=== PATIENT | female | born 1990 ===

== ENCOUNTER 2018-06-10 07:45 | Inpatient (IN) ==
[2018-06-10] MEDS ORDERED: LACTATED RINGER'S 1,000 ML IV PRN (08:21)
[2018-06-10] MEDS ORDERED: OXYTOCIN 30 UNITS/500 ML BAG IV PRN (08:21)
[2018-06-10] MEDS ORDERED: LACTATED RINGER'S 1,000 ML IV SCH (08:30)
[2018-06-10 08:43] LABS: Hematocrit (blood only) 36.9 % (37-47); Mean Corpuscular Volume 91.1 fL (80-100); Mean Platelet Volume 10.6 fL (7.4-10.4); Platelet Count 165 K/uL (130-400); RDW Coefficient of Variation 12.8 % (11.5-14.5); RDW Standard Deviation 42.6 fL (36.4-46.3); Red Blood Count 4.05 M/uL (4.2-5.4)
[2018-06-10 08:53] LABS: Mean Corpuscular Hgb Conc 35.2 g/dL (32-36)
--- NOTE | 2018-06-10 10:03 | History & Physical Report ---
Date of Service June 10, 2018 Assessment & Plan (1) Normal intrauterine in third trimester: 27yo at 40.6 weeks GA. Admit for labor Anticipate vaginal delivery. Uncomplicated course No significant PMH/PSH Labor: Patient declining any labor interventions. Will continue to monitor GBS neg History of Present Illness Chief Complaint: labor Primary Care Provider: NO PCP 27yo at 40.6 weeks GA. Patient presen with contractions. Denies VB, LOF. Good Fm PNI: None Labs: A+, GBS neg Allergies Allergy/AdvReac Type Severity Reaction Status Date / Time No Known Allergies Allergy Unverified 06/10/18 08:04 Home Medications Home Medications Medication Instructions Recorded Confirmed Type PNV [id number] fumarate-FA 06/10/18 History [] docusate sodium [Colace] 200 mg PO DAILY 06/10/18 06/10/18 History polyethylene glycol 3350 [Miralax] 17 g PO DAILY 06/10/18 06/10/18 History Patient History Medical History Anxiety Family History Other H/O wisdom tooth extraction S/P ACL surgery Social History marital status: Current Living Situation: Spouse Other Information That Helps Us Care for You: No Feels Safe at Home: Yes Safety Concerns: Feels Safe At This Time Smoking Status: Never smoker Hx Alcohol Use: No Hx Substance Use: No Beliefs That Will Affect Care: None Preferred Language: Bengali Communication Ability: Effective Substation Wireman Required: No Physical Exam 2 Vital Signs (Past 24 Hours): Last Vital Signs Temp 36.4 C L 06/10/18 08:00 Pulse 70 06/10/18 07:58 Resp 20 06/10/18 09:00 BP 127/75 06/10/18 07:58 Genitourinary: Manual OB Exam: + cervical dilation 4 cm, + cervical effacement 90% and + station -1 OB Exam Monitor Tracing: + external FHT monitor used and + category I
--- NOTE | 2018-06-10 15:25 | Obstetrical Progress Note ---
Date of Service June 10, 2018 Assessment & Plan (1) Normal intrauterine in third trimester: 27yo at 40.6 weeks GA. Admit for early labor Anticipate vaginal delivery. Uncomplicated course No significant PMH/PSH Labor: Progressing slowly. Patient declining any labor interventions. Will continue to monitor GBS neg Subjective Patient doing well. Declining labor intervention. Physical Exam 2 Vital Signs (Past 24 Hours): Last Vital Signs Temp 36.5 C 06/10/18 12:00 Pulse 67 06/10/18 15:04 Resp 20 06/10/18 13:30 BP 108/63 06/10/18 15:04 Genitourinary: Manual OB Exam: + cervical dilation (5.5), + cervical effacement 90% and + station 0 OB Exam Monitor Tracing: + category I
[2018-06-11] MEDS ORDERED: ACETAMINOPHEN 325 MG TAB PO PRN (05:04)
[2018-06-11] MEDS ORDERED: BISACODYL 10 MG SUPP PR PRN (05:04)
[2018-06-11] MEDS ORDERED: HYDROCORTISONE ACETATE 25 MG SUPP PR PRN (05:04)
[2018-06-11] MEDS ORDERED: DIPHTHERIA/TETANUS/PERTUSSIS 0.5 ML SYR/VIAL IM ONE (05:04)
[2018-06-11] MEDS ORDERED: OXYTOCIN 30 UNITS/500 ML BAG IV PRN (05:04)
[2018-06-11] MEDS ORDERED: BENZOCAINE 20% AER SPR 82.5 GM CAN EXT PRN (05:04)
[2018-06-11] MEDS ORDERED: SUPERCREAM 0.870% 15 GM JAR EXT PRN (05:04)
[2018-06-11] MEDS: IBUPROFEN 600 MG TAB PO PRN ×4 (05:49→20:21)
--- NOTE | 2018-06-11 08:01 | Delivery Summary ---
DATE OF OPERATION: 06/11/2018 PROCEDURE: Normal spontaneous vaginal delivery with a second-degree perineal laceration and bilateral cervical laceration repair. SURGEON: Nguyễn Ocampo MD PREOPERATIVE DIAGNOSES: 1. Single intrauterine at 40 weeks 6 days gestational age. 2. Labor. POSTOPERATIVE DIAGNOSES: 1. Single intrauterine at 40 weeks 6 days gestational age. 2. Labor. 3. Delivered. ESTIMATED BLOOD LOSS: 300 mL. DRAINS: None. FLUIDS: Continuous lactated ringer. URINE OUTPUT: Not measured. COMPLICATIONS: None. FINDINGS: Viable female with Apgars of 8 and 9 at 1 and 5 minutes respectively and weight pending. INDICATIONS: Ms. Martinez is a 27-year-old G1, P0 at 40 weeks 6 days gestational age. The patient presented with regular contractions and was found to be 4 cm dilated. The patient progressed slowly in labor without any additional augmentation until she was approximately 8 cm dilated, at which time she underwent artificial rupture of membranes for clear fluid. The patient continued to progress in labor and progressed to 10 cm dilated, 100% effaced, positive 2 station at which time she felt the desire to push. DESCRIPTION OF PROCEDURE: The patient progressed to 10 cm dilated, 100% effaced positive 2 station, pushed over intact perineum without anesthesia and delivered a viable female infant, weight and Apgars as noted above. The head of the delivered in LESLIE position and rest into right transverse. Nuchal cord x1 was noted which was easily reduced. Body and shoulders quickly followed. The was noted to be vigorous soon after delivery and was delivered to the maternal abdomen where suctioned bulb and stimulated. A 2-minute delayed cord clamping was initiated. The cord was double clamped and cut. The was noted to be still continued to be vigorous. Attention was then turned to delivery of the placenta which was delivered intact, 3-vessel cord with gentle cord traction. Inspection of the perineum, vagina, and cervix showed a second-degree perineal laceration, bilateral sulcal lacerations and a right labial laceration. These were repaired in traditional fashion with Vicryl suture. Needle, sponge and instrument counts were correct at the completion of the case. I attest to the content of the Intraoperative Record and any orders documented therein. Any exception s are noted below.
[2018-06-11] MEDS: PRENATAL VITAMIN 1 TAB PO SCH (09:18)
[2018-06-11] MEDS: DOCUSATE SODIUM 100 MG CAP PO SCH ×2 (09:18→20:21)
[2018-06-12] MEDS: IBUPROFEN 600 MG TAB PO PRN ×5 (00:28→19:27)
[2018-06-12 06:53] LABS: Hematocrit (blood only) 28.5 % (37-47); Hemoglobin 9.6 g/dL (12.0-16.0); Mean Corpuscular Hgb Conc 33.7 g/dL (32-36); Mean Corpuscular Volume 94.1 fL (80-100); Platelet Count 144 K/uL (130-400); RDW Coefficient of Variation 13.3 % (11.5-14.5); RDW Standard Deviation 45.4 fL (36.4-46.3); Red Blood Count 3.03 M/uL (4.2-5.4); White Blood Count 8.08 K/uL (4.8-10.8)
[2018-06-12] MEDS: DOCUSATE SODIUM 100 MG CAP PO SCH ×2 (09:19→20:10)
[2018-06-12] MEDS: PRENATAL VITAMIN 1 TAB PO SCH (09:19)
--- NOTE | 2018-06-12 10:04 | Obstetrical Progress Note ---
Date of Service <Komal Ruiz MD - Last Filed: 06/12/18 10:04> June 12, 2018 Assessment & Plan <Komal Ruiz MD - Last Filed: 06/12/18 10:04> (1) Normal intrauterine in third trimester: 27yo w/ at 40.6 weeks with second degree perineal tear and bilateral cervical laceration repair. A+, GBS- PPD #1 Routine care -Ambulation, diet+hydration, pain control Day #:: 1 Subjective <Komal Ruiz MD - Last Filed: 06/12/18 10:04> Ambulation: ambulating normally Voiding: no voiding problems Passing Gas:: Yes Diet Tolerance:: regular diet Lochia:: Moderate Feeding Type:: breast feeding Current Pain Level(1-10): 3 Constitutional: no fever and no chills Respiratory: no dyspnea Cardiovascular: no chest pain and no palpitations Gastrointestinal: no nausea and no vomiting Genitourinary (female): no dysuria Physical Exam <Komal Ruiz MD - Last Filed: 06/12/18 10:04> Vital Signs (Past 24 Hours) Last Vital Signs Temp 36.5 C 06/12/18 08:11 Pulse 72 06/12/18 08:11 Resp 18 06/12/18 08:11 BP 112/72 06/12/18 08:11 Pulse Ox 99 06/12/18 08:11 Constitutional WD/WN, vitals as above Respiratory normal respiratory effort, lungs clear to auscultation Cardiovascular RRR, no murmur, no edema Genitourinary OB Exam Abdomen: + fundal height Fundus: + firm and + relation to umbilicus (at umbilicus) Results & Data <Komal Ruiz MD - Last Filed: 06/12/18 10:04> Laboratory Results Laboratory Results - last 24 hr 06/12/18 06:38 WBC 8.08 RBC 3.03 L Hgb 9.6 L D Hct 28.5 L MCV 94.1 MCH 31.7 MCHC 33.7 RDW Std Deviation 45.4 RDW Coeff of Aggie 13.3 Plt Count 144 MPV 10.0 Medications Administered Home Medications PNV cmb#95-ferrous fumarate-FA [] 02/09/19 [History] docusate sodium [Colace] 200 mg PO DAILY 06/10/18 [History Confirmed 06/10/18] polyethylene glycol 3350 [Miralax] 17 g PO DAILY 06/10/18 [History Confirmed 01/18] Active Medications Acetaminophen (Tylenol) 650 mg PO Q6H PRN PRN Reason: Pain/DEJESUS/Fever Stop: 07/11/18 05:03 Benzocaine (Dermoplast Pain Relieving Selz) 1 appln EXT PRN PRN PRN Reason: Perineal Discomfort Stop: 07/11/18 05:03 Bisacodyl (Dulcolax) 5 mg PO 2000 [facility] Stop: 06/12/18 20:01 Bisacodyl (Dulcolax) 10 mg NC DAILY PRN PRN Reason: No BM on 2nd post- day Stop: 07/11/18 05:03 Cocaine HCl (Supercream 0.870%) 1 gm EXT BID PRN PRN Reason: Hemorrhoidal Inflammation Stop: 06/25/18 05:03 Docusate Sodium (Colace) 100 mg PO BID [facility] Stop: 07/11/18 08:59 Last Admin: 06/12/18 09:19 Dose: 100 mg Hydrocortisone (Anusol Hc) 25 mg NC BID PRN PRN Reason: Hemorrhoidal Inflammation Stop: 07/11/18 05:03 Oxytocin (Pitocin) 30 units in 500 mls @ 333.333 mls/hr IV .Q1H30M PRN; Protocol PRN Reason: BLEEDING CONTROL Stop: 07/11/18 05:03 Ibuprofen (Motrin) 600 mg PO Q4H PRN PRN Reason: Pain/DEJESUS/Cramping/Fever Stop: 07/11/18 05:03 Last Admin: 06/12/18 09:17 Dose: 600 mg Prenat Multivit/Phone Circuit Operator/Iron/Folic Ac ( Vitamin) 1 tab PO QAM [facility] Stop: 07/11/18 08:59 Last Admin: 06/12/18 09:19 Dose: 1 tab <Nguyễn Ocampo MD - Last Filed: 06/15/18 09:22> Co-Signing Physician Notes Patient evaluated and agree with the above finding and plan
[2018-06-12 12:27] VITALS: O2SAT 100
[2018-06-12 19:55] VITALS: TEMP 97.9
[2018-06-12] MEDS ORDERED: BISACODYL 5 MG TABEC PO SCH (20:00)
[2018-06-13] MEDS: IBUPROFEN 600 MG TAB PO PRN (05:04)
--- NOTE | 2018-06-13 06:56 | Obstetrical Progress Note ---
Date of Service <Komal Ruiz MD - Last Filed: 06/13/18 07:03> June 13, 2018 Assessment & Plan <Komal Ruiz MD - Last Filed: 06/13/18 07:03> (1) Normal intrauterine in third trimester: 27yo w/ at 40.6 weeks with second degree perineal tear and bilateral cervical laceration repair. A+, GBS- PPD #2 Discharge -instructions reviewed. Subjective <Komal Ruiz MD - Last Filed: 06/13/18 07:03> Ambulation: ambulating normally Voiding: no voiding problems Passing Gas:: Yes Diet Tolerance:: regular diet Lochia:: Moderate Feeding Type:: breast feeding Current Pain Level(1-10): 2 Constitutional: no fever and no chills Physical Exam <Komal Ruiz MD - Last Filed: 06/13/18 07:03> Vital Signs (Past 24 Hours) Last Vital Signs Temp 36.6 C 06/12/18 19:20 Pulse 69 06/12/18 19:20 Resp 18 06/12/18 19:20 BP 107/69 06/12/18 19:20 Pulse Ox 100 06/12/18 12:25 Respiratory normal respiratory effort, lungs clear to auscultation Cardiovascular RRR, no murmur, no edema Extremities: no calf tenderness and no pedal edema Gastrointestinal (Abdomen) Inspection/Auscultation: abdomen normal to inspection (With some very itchy stretch chambers. pt states pruritis there before delivery.) Genitourinary OB Exam Abdomen: + fundal height Fundus: + firm Results & Data <Komal Ruzi MD - Last Filed: 06/13/18 07:03> Medications Administered Home Medications PNV cmb#95-ferrous fumarate-FA [] 06/10/18 [History] docusate sodium [Colace] 200 mg PO DAILY 06/10/18 [History Confirmed 06/10/18] polyethylene glycol 3350 [Miralax] 17 g PO DAILY 06/10/18 [History Confirmed 01/18] Active Medications Acetaminophen (Tylenol) 650 mg PO Q6H PRN PRN Reason: Pain/DEJESUS/Fever Stop: 07/11/18 05:03 Benzocaine (Dermoplast Pain Relieving Somers) 1 appln EXT PRN PRN PRN Reason: Perineal Discomfort Stop: 07/11/18 05:03 Bisacodyl (Dulcolax) 10 mg RI DAILY PRN PRN Reason: No BM on 2nd post- day Stop: 07/11/18 05:03 Cocaine HCl (Supercream 0.870%) 1 gm EXT BID PRN PRN Reason: Hemorrhoidal Inflammation Stop: 06/25/18 05:03 Docusate Sodium (Colace) 100 mg PO BID [facility] Stop: 07/11/18 08:59 Last Admin: 06/12/18 20:10 Dose: 100 mg Hydrocortisone (Anusol Hc) 25 mg RI BID PRN PRN Reason: Hemorrhoidal Inflammation Stop: 07/11/18 05:03 Oxytocin (Pitocin) 30 units in 500 mls @ 333.333 mls/hr IV .Q1H30M PRN; Protocol PRN Reason: BLEEDING CONTROL Stop: 07/11/18 05:03 Ibuprofen (Motrin) 600 mg PO Q4H PRN PRN Reason: Pain/DEJESUS/Cramping/Fever Stop: 07/11/18 05:03 Last Admin: 06/13/18 05:04 Dose: 600 mg Prenat Multivit/Odum/Iron/Folic Ac ( Vitamin) 1 tab PO QAM [facility] Stop: 07/11/18 08:59 Last Admin: 06/12/18 09:19 Dose: 1 tab <Crystal Bautista MD - Last Filed: 06/13/18 08:26> Co-Signing Physician Notes I have examined the patient and agree with the resident note above.
[2018-06-13] MEDS ORDERED: DiphenhydrAMINE 2%/ZINC 0.1% CREAM 28GM TUBE EXT PRN (07:12)
[2018-06-13 08:23] VITALS: PULSE 51
[2018-06-13 08:33] VITALS: BP 115/73
[2018-06-13] MEDS: DOCUSATE SODIUM 100 MG CAP PO SCH (08:42)
[2018-06-13] MEDS: PRENATAL VITAMIN 1 TAB PO SCH (08:42)
--- NOTE | 2018-06-16 07:42 | Coding Query ---
CODING QUERY To promote full compliance with coding requirements relating to patient care, provider participation is requested in all cases of seating captain uncertainty. Please assist us with the question(s) below: Coding Question(s): Dr. Ocampo, Conflicting information regarding the location of the obstetrical lacerations is documented throughout the patient's chart. Please clarify if the lacerations were to the: (select all that apply) ( ) cervix ( ) sulci ( x ) perineum ( x ) vagina ( x ) labia ( ) other, please explain Physician's Response(s): Thank you for your time, SAVANA Matthews, [facility]
== END 2018-06-13 15:10 | disposition home or self-care (01) | DRG 807 ==
LOC: OPB 07:45 → 4S1 07:47 → 4S2 06-11 09:25